=== PATIENT | male | born 1995 | race Caucasian/White ===

== ENCOUNTER 2021-04-26 16:09 | Day surgery (SDCO) | payer OTHER ==
[~2021-04-26] VITALS: Ht 188 cm; Wt 116.0 kg
[~2021-04-26 16:09] MED LIST: NORCO 5-325 TA1 EACH PO
[2021-04-26 16:39] LABS: BASOPHIL 0.5 % (0-2); EOSINOPHIL 1.4 % (0-5); HCT 45.5 % (42.0-52.0); HGB 15.6 g/dl (13.2-18.0); LYMPHOCYTE 24.4 % (15-48); MCH 29.7 pg (25.0-31.0); MCHC 34.3 g/dL (32.0-36.0); MCV 86.5 fL (78.0-100.0); MONOCYTE 5.9 % (0-12); MPV 9.6 fL (6.0-9.5); NEUTROPHIL 67.5 % (41-80); NRBC 0; PLT 258 K/uL (150-400); RBC 5.26 M/uL (4.70-6.00); RDW 12.2 % (11.5-14.0); WBC 7.8 K/uL (4.0-10.5)
[2021-04-26 16:55] LABS: ALBUMIN 3.8 g/dL (3.4-5.0); BILIRUBIN - TOTAL 0.5 mg/dL (0.2-1.0); BUN/CREAT RATIO (CALC) 12.9 RATIO; CREATININE 0.85 mg/dL (0.67-1.17); POTASSIUM 4.4 mmol/L (3.5-5.1); TOTAL PROTEIN 7.8 g/dL (6.4-8.2)
[2021-04-26 17:15] LABS: CORONAVIRUS 2019 SARS-COV-2 NEGATIVE (NEGATIVE); INFLUENZA A NAA NEGATIVE (NEGATIVE)
[2021-04-26 17:31] LABS: BILIRUBIN NEGATIVE (NEGATIVE); BLOOD NEGATIVE Ery/uL (NEGATIVE); CLARITY CLEAR (CLEAR); COLOR YELLOW (YELLOW); GLUCOSE (U) NORMAL (NORMAL); LEUKOCYTES NEGATIVE Leu/uL (NEGATIVE); NITRITE NEGATIVE (NEGATIVE); PROTEIN NEGATIVE (NEGATIVE); UROBILINOGEN 0.2 mg/dL (0.2-1.0); pH 7.5 (5.0-9.0)
[2021-04-27] MEDS ORDERED: MOTRIN600 MG PO (07:21)
[2021-04-27] MEDS ORDERED: OXY-IR 5MG5 MG PO (07:21)
[2021-04-27] MEDS ORDERED: COLACE100 MG PO (07:21)
[2021-04-27] MEDS ORDERED: ACETAMINOPHEN500 M1 PO (07:21)
== END 2021-04-27 11:50 | disposition home or self-care (01) ==
LOC: FER 16:09 → FMS 18:47
PROVIDERS: Nurse Practitioner Family; ADMIT Student in an Organized Health Care Education/Training Program
DX: K35.80 Unspecified acute appendicitis (principal); E66.9 Obesity, unspecified; Z68.32 Body mass index [BMI] 32.0-32.9, adult; Z56.0 Unemployment, unspecified; Z20.822 Contact with and (suspected) exposure to COVID-19
CPT/HCPCS: 36415; 80053; 81003; 85025; G0378; J1100; J1170; J1644; J1885; J2250; J2405; J2543; J2704; J2710; J3010; J7030; J7120; Q9967; U0002